=== PATIENT | female | born 1955 | race Caucasian/White ===

== ENCOUNTER 2016-12-24 18:55 | Inpatient (IN) | payer OTHER ==
[~2016-12-24] VITALS: Ht 162.6 cm; Wt 77.3 kg
[~2016-12-24 18:55] MED LIST: ASPIR 8181 MG PO; CIP500 PO; FLA250 PO; HYDROCHLOROTH12.5 M2 PO; LAC PO; LIPI10 PO; LISINOPRIL10 MG PO; METFORMIN ER500 M1; NEU300 PO
[2016-12-24] MEDS ORDERED: METFORMIN HCL500 MG PO (20:57)
[2016-12-24] MEDS ORDERED: NEU300 PO (20:58)
[2016-12-24] MEDS ORDERED: ASPIR 8181 MG PO (20:58)
[2016-12-24] MEDS ORDERED: LISINOPRIL10 MG PO (20:58)
[2016-12-24] MEDS ORDERED: LIPI10 PO (20:58)
[2016-12-24] MEDS ORDERED: HYDROCHLOROTH12.5 M2 PO (20:58)
[2016-12-24 21:30] LABS: CARBON DIOXIDE 30.6 mmol/L (21-32); CHLORIDE SERUM 96 mmol/L (98-107); CREATININE SERUM 0.8 mg/dL (0.6-1.0); GFR1 > 60 mL/min; GLUCOSE SERUM 101 mg/dL (74-106); POTASSIUM SERUM 3.9 mmol/L (3.5-5.1); SODIUM SERUM 134 mmol/L (136-145)
[2016-12-24 21:37] LABS: BASOPHIL % 0.4 % (0-2); PLATELET COUNT 374 x10^3mcL (130-400)
[2016-12-24 21:39] LABS: RED CELL DISTRIBUTION WIDTH 15.9 % (11.5-14.5)
[2016-12-24 21:41] LABS: ALKALINE PHOSPHATASE 106 U/L (46-116); ALT/SGPT 20 U/L (14-59); AST/SGOT 17 U/L (15-37); BILIRUBIN TOTAL 0.28 mg/dL (0.20-1.00); C REACTIVE PROTEIN 9.5 mg/dL (<=0.9)
[2016-12-24 21:42] LABS: ALBUMIN 3.2 g/dL (3.4-5.0); CHOLESTEROL/HDL RATIO 2.5
[2016-12-24 21:46] LABS: urine erythrocyte NEGATIVE (NEGATIVE)
[2016-12-24 22:00] LABS: CK-MB 0.9 ng/mL (0-3.6)
[2016-12-24 22:01] LABS: microscopic required? YES
[2016-12-24 22:02] LABS: T3 TOTAL 0.97 ng/mL
[2016-12-24 22:26] LABS: FREE T4 1.8 ng/dL (0.76-1.46); FREE THYROXINE INDEX 3.1 ug/dL (1.4-4.5); T4(THYROXINE) 9.8 ug/dL (4.7-13.3)
[2016-12-24 22:31] VITALS: BP 99/77
[2016-12-24 22:40] LABS: ERYTHROCYTE SED RATE 110 mm/hr (0-30)
[2016-12-25 06:20] VITALS: BP 97/64
[2016-12-25 13:59] VITALS: BP 116/53
[2016-12-25 18:16] VITALS: BP 147/67
[2016-12-25 20:55] VITALS: BP 124/69
[2016-12-26 05:45] VITALS: BP 139/72
[2016-12-26 06:19] LABS: BASOPHIL % 0.8 % (0-2); PLATELET COUNT 351 x10^3mcL (130-400)
[2016-12-26 06:48] LABS: RED CELL DISTRIBUTION WIDTH 15.9 % (11.5-14.5)
[2016-12-26 06:49] LABS: CARBON DIOXIDE 29.5 mmol/L (21-32); CHLORIDE SERUM 101 mmol/L (98-107); CREATININE SERUM 0.9 mg/dL (0.6-1.0); GFR1 > 60 mL/min; GLUCOSE SERUM 74 mg/dL (74-106); MAGNESIUM 2.1 mg/dL (1.8-2.4); PHOSPHOROUS 4.4 mg/dL (2.5-4.9); POTASSIUM SERUM 4.6 mmol/L (3.5-5.1); SODIUM SERUM 138 mmol/L (136-145)
[2016-12-26 09:21] VITALS: BP 118/70
[2016-12-26 16:25] VITALS: BP 125/64
[2016-12-26 21:17] VITALS: BP 151/81
[2016-12-27 06:07] VITALS: BP 132/69
[2016-12-27 08:58] VITALS: BP 121/41
[2016-12-27 09:15] LABS: BASOPHIL % 0.8 % (0-2); PLATELET COUNT 371 x10^3mcL (130-400)
[2016-12-27 09:17] LABS: RED CELL DISTRIBUTION WIDTH 15.5 % (11.5-14.5)
[2016-12-27 09:18] LABS: CALCIUM 8.7 mg/dL (8.5-10.1); CARBON DIOXIDE 30.6 mmol/L (21-32); PHOSPHOROUS 4.7 mg/dL (2.5-4.9); POTASSIUM SERUM 4.3 mmol/L (3.5-5.1)
[2016-12-27] MEDS ORDERED: CLINDAMYCIN HY150 M1 PO ×2 (12:52→13:51)
[2016-12-27] MEDS ORDERED: LAC PO (12:53)
[2016-12-27 14:15] VITALS: BP 121/41
== END 2016-12-27 14:25 | disposition home or self-care (01) | DRG 380 ==
LOC: ED 18:55 → DU 20:37 → MU 12-26 09:29
PROVIDERS: Family Medicine; Specialist; ADMIT Family Medicine
PROC: 0JBQ0ZZ Excision of Right Foot Subcutaneous Tissue and Fascia, Open Approach (ICD-10-PCS; principal; 2016-12-25)
DX: E11.621 Type 2 diabetes mellitus with foot ulcer (principal); L97.519 Non-pressure chronic ulcer of other part of right foot with unspecified severity; E11.52 Type 2 diabetes mellitus with diabetic peripheral angiopathy with gangrene; E44.0 Moderate protein-calorie malnutrition; E87.1 Hypo-osmolality and hyponatremia; Z79.84 Long term (current) use of oral hypoglycemic drugs; I10 Essential (primary) hypertension; M25.78 Osteophyte, vertebrae; L03.115 Cellulitis of right lower limb; E78.5 Hyperlipidemia, unspecified; D64.9 Anemia, unspecified; M25.70 Osteophyte, unspecified joint; E87.8 Other disorders of electrolyte and fluid balance, not elsewhere classified; Z89.429 Acquired absence of other toe(s), unspecified side; Z87.891 Personal history of nicotine dependence
CPT/HCPCS: 36600; 82962; 83880; 84439; 97530-GP; J2270; J2543; J3490; J7030; Q0092

== ENCOUNTER 2017-04-22 22:49 | Inpatient (IN) | payer OTHER ==
[~2017-04-22] VITALS: Ht 162.6 cm; Wt 81.6 kg
[~2017-04-22 22:49] MED LIST changes: +CLINDAMYCIN HY150 M1 PO; +METFORMIN HCL500 MG PO
[2017-04-23] VITALS (7 sets, daily range): BP systolic 112–129; BP diastolic 60–70
[2017-04-23 00:23] LABS: BASOPHIL % 0.3 % (0-2); PLATELET COUNT 306 x10^3mcL (130-400)
[2017-04-23 00:25] LABS: RED CELL DISTRIBUTION WIDTH 16.9 % (11.5-14.5)
[2017-04-23 00:40] LABS: CARBON DIOXIDE 30.8 mmol/L (21-32); CHLORIDE SERUM 97 mmol/L (98-107); CREATININE SERUM 0.9 mg/dL (0.6-1.0); GFR1 > 60 mL/min; GLUCOSE SERUM 124 mg/dL (74-106); POTASSIUM SERUM 4.7 mmol/L (3.5-5.1); SODIUM SERUM 134 mmol/L (136-145)
[2017-04-23 00:46] LABS: CK-MB 0.6 ng/mL (0-3.6)
[2017-04-23 00:56] LABS: ALKALINE PHOSPHATASE 138 U/L (46-116); ALT/SGPT 56 U/L (14-59); AST/SGOT 52 U/L (15-37); BILIRUBIN TOTAL 0.6 mg/dL (0.20-1.00)
[2017-04-23 01:01] LABS: ALBUMIN 2.9 g/dL (3.4-5.0); TOTAL PROTEIN, SERUM 8.6 g/dL (6.4-8.2)
[2017-04-23 03:59] LABS: CHOLESTEROL/HDL RATIO 2.8; MAGNESIUM 2.3 mg/dL (1.8-2.4)
[2017-04-23 04:09] LABS: T3 TOTAL 0.96 ng/mL
[2017-04-23 04:10] LABS: FREE T4 1.91 ng/dL (0.76-1.46); FREE THYROXINE INDEX 3.7 ug/dL (1.4-4.5); T4(THYROXINE) 10.8 ug/dL (4.7-13.3)
[2017-04-23 06:20] LABS: BASOPHIL % 0.2 % (0-2); PLATELET COUNT 287 x10^3mcL (130-400)
[2017-04-23 06:46] LABS: CALCIUM 8.4 mg/dL (8.5-10.1); CARBON DIOXIDE 26.3 mmol/L (21-32); CHLORIDE SERUM 102 mmol/L (98-107); CREATININE SERUM 0.9 mg/dL (0.6-1.0); GFR1 > 60 mL/min; GLUCOSE SERUM 88 mg/dL (74-106); POTASSIUM SERUM 4.1 mmol/L (3.5-5.1); SODIUM SERUM 139 mmol/L (136-145)
[2017-04-23 09:15] LABS: microscopic required? NO
[2017-04-23 09:41] LABS: urine erythrocyte NEGATIVE (NEGATIVE)
[2017-04-23 09:51] LABS: AMPHETAMINE QUAL UR POSITIVE (NEG <=1000)
[2017-04-23 15:09] LABS: IRON 15 ug/dL (50-170); TOTAL IRON BINDING CAPACITY 229 ug/dL (250-450)
[2017-04-24 05:10] VITALS: BP 121/61
[2017-04-24 06:34] LABS: BASOPHIL % 0.3 % (0-2); PLATELET COUNT 314 x10^3mcL (130-400)
[2017-04-24 06:37] LABS: CALCIUM 8.5 mg/dL (8.5-10.1); CARBON DIOXIDE 24.7 mmol/L (21-32); CHLORIDE SERUM 103 mmol/L (98-107); CREATININE SERUM 0.9 mg/dL (0.6-1.0); GFR1 > 60 mL/min; GLUCOSE SERUM 128 mg/dL (74-106); MAGNESIUM 2.3 mg/dL (1.8-2.4); PHOSPHOROUS 4.1 mg/dL (2.5-4.9); POTASSIUM SERUM 3.9 mmol/L (3.5-5.1); SODIUM SERUM 138 mmol/L (136-145)
[2017-04-24 06:40] LABS: RED CELL DISTRIBUTION WIDTH 17.2 % (11.5-14.5)
[2017-04-24 09:46] VITALS: BP 104/54
[2017-04-24 13:26] VITALS: BP 156/66
[2017-04-24 21:09] VITALS: BP 154/68
[2017-04-25 05:27] VITALS: BP 121/63
[2017-04-25 06:50] LABS: BASOPHIL % 0.7 % (0-2); PLATELET COUNT 377 x10^3mcL (130-400); RED CELL DISTRIBUTION WIDTH 17.3 % (11.5-14.5)
[2017-04-25 07:44] VITALS: BP 148/77
[2017-04-25 10:00] VITALS: BP 110/74
[2017-04-25] MEDS ORDERED: AUGMENTIN 875-1 EACH PO (12:09)
[2017-04-25] MEDS ORDERED: DAILY VALUE1 EACH PO (12:30)
[2017-04-25] MEDS ORDERED: NORCO1 TA2 PO (13:00)
[2017-04-25] MEDS ORDERED: NATURAL IRON65 MG PO (13:05)
[2017-04-25 13:32] VITALS: BP 148/77
== END 2017-04-25 15:05 | disposition home health service (06) | DRG 710 ==
LOC: ED 22:49 → DU 04-23 01:57
PROVIDERS: Emergency Medicine; Podiatrist Foot & Ankle Surgery; ADMIT Family Medicine
PROC: 0Y6N0Z9 Detachment at Left Foot, Partial 1st Ray, Open Approach (ICD-10-PCS; principal; 2017-04-23 09:00)
DX: A41.9 Sepsis, unspecified organism (principal); E43 Unspecified severe protein-calorie malnutrition; E11.42 Type 2 diabetes mellitus with diabetic polyneuropathy; E11.621 Type 2 diabetes mellitus with foot ulcer; E87.1 Hypo-osmolality and hyponatremia; L03.115 Cellulitis of right lower limb; F11.10 Opioid abuse, uncomplicated; D50.9 Iron deficiency anemia, unspecified; M86.671 Other chronic osteomyelitis, right ankle and foot; I87.2 Venous insufficiency (chronic) (peripheral); F15.10 Other stimulant abuse, uncomplicated; F14.10 Cocaine abuse, uncomplicated; F12.10 Cannabis abuse, uncomplicated; F17.210 Nicotine dependence, cigarettes, uncomplicated; Z79.82 Long term (current) use of aspirin; Z68.30 Body mass index [BMI] 30.0-30.9, adult; Z79.84 Long term (current) use of oral hypoglycemic drugs; E66.9 Obesity, unspecified
CPT/HCPCS: 82962; 83880; 84439; 94150; 97110-GP; 97116-GP; 97530-GP; J0780; J1200; J2250; J2270; J2405; J2543; J2704; J3010; J3490; J7030; Q0092

== ENCOUNTER 2017-08-24 18:16 | Emergency (ER) | payer OTHER ==
[~2017-08-24 18:16] MED LIST changes: +AUGMENTIN 875-1 EACH PO; +DAILY VALUE1 EACH PO; +NATURAL IRON65 MG PO; +NORCO1 TA2 PO
[2017-08-24 22:36] VITALS: BP 158/90
== END 2017-08-24 22:36 | disposition home or self-care (01) ==
LOC: ED 18:16
DX: S30.0XXA Contusion of lower back and pelvis, initial encounter (principal); E11.9 Type 2 diabetes mellitus without complications; I10 Essential (primary) hypertension; W18.30XA Fall on same level, unspecified, initial encounter; Y93.89 Activity, other specified; Y92.89 Other specified places as the place of occurrence of the external cause; Y99.8 Other external cause status
CPT/HCPCS: J1885

== ENCOUNTER 2018-09-01 18:42 | Emergency (ER) | payer OTHER ==
[~2018-09-01] VITALS: Ht 170.2 cm; Wt 87.5 kg
[2018-09-01 18:56] VITALS: Ht 170.2 cm; Wt 87.5 kg
[2018-09-01 21:31] VITALS: BP 168/94
== END 2018-09-01 21:31 | disposition home or self-care (01) ==
LOC: ED 18:42
DX: J18.9 Pneumonia, unspecified organism (principal); F17.210 Nicotine dependence, cigarettes, uncomplicated; I10 Essential (primary) hypertension; E11.9 Type 2 diabetes mellitus without complications; Z90.49 Acquired absence of other specified parts of digestive tract; Z98.890 Other specified postprocedural states
CPT/HCPCS: 99406; J0696; J1885; J7512; J7620; Q0092

== ENCOUNTER 2018-09-28 16:08 | Inpatient (IN) | payer OTHER ==
[~2018-09-28] VITALS: Ht 170.2 cm; Wt 86.2 kg
[2018-09-28 16:19] VITALS: Ht 170.2 cm; Wt 86.2 kg
[2018-09-28 17:59] LABS: BASOPHIL % 0.2 % (0-2); PLATELET COUNT 269 x10^3mcL (130-400)
[2018-09-28 18:04] LABS: RED CELL DISTRIBUTION WIDTH 15.4 % (11.5-14.5)
[2018-09-28 18:08] LABS: CALCIUM 8.3 mg/dL (8.5-10.1); CARBON DIOXIDE 29.9 mmol/L (21-32); CHLORIDE SERUM 103 mmol/L (98-107); CREATININE SERUM 0.9 mg/dL (0.6-1.0); GFR1 > 60 mL/min; GLUCOSE SERUM 205 mg/dL (74-106); POTASSIUM SERUM 4.1 mmol/L (3.5-5.1); SODIUM SERUM 141 mmol/L (136-145)
[2018-09-28 18:21] LABS: ALKALINE PHOSPHATASE 146 U/L (46-116); ALT/SGPT 25 U/L (14-59); AST/SGOT 18 U/L (15-37); BILIRUBIN TOTAL 0.32 mg/dL (0.20-1.00); FREE T4 1.62 ng/dL (0.76-1.46); LIPASE 189 IU/L (73-393); TOTAL PROTEIN, SERUM 7.9 g/dL (6.4-8.2)
[2018-09-28 18:25] LABS: ALBUMIN 3.2 g/dL (3.4-5.0)
[2018-09-28 18:58] LABS: microscopic required? NO
[2018-09-28 19:07] LABS: UA SPECIFIC GRAVITY 1.015 (1.005-1.035); urine erythrocyte NEGATIVE (NEGATIVE)
[2018-09-28 19:30] LABS: AMPHETAMINE QUAL UR POSITIVE (See below)
[2018-09-28 21:31] LABS: CHOLESTEROL/HDL RATIO 3.3; MAGNESIUM 2.3 mg/dL (1.8-2.4); PHOSPHOROUS 2.8 mg/dL (2.5-4.9)
[2018-09-28] MEDS ORDERED: METHADONE HCL10 MG (22:00)
[2018-09-28] MEDS ORDERED: LIPITOR10 MG (22:00)
[2018-09-28 23:22] VITALS: BP 172/89
[2018-09-29 00:04] VITALS: BP 172/89
[2018-09-29 05:06] VITALS: BP 141/84
[2018-09-29 06:26] LABS: BASOPHIL % 0.3 % (0-2); PLATELET COUNT 256 x10^3mcL (130-400)
[2018-09-29 06:40] LABS: CALCIUM 8.4 mg/dL (8.5-10.1); CHLORIDE SERUM 103 mmol/L (98-107); CREATININE SERUM 0.9 mg/dL (0.6-1.0); GFR1 > 60 mL/min; GLUCOSE SERUM 186 mg/dL (74-106); MAGNESIUM 2.5 mg/dL (1.8-2.4); PHOSPHOROUS 2.6 mg/dL (2.5-4.9); POTASSIUM SERUM 4.4 mmol/L (3.5-5.1); SODIUM SERUM 140 mmol/L (136-145)
[2018-09-29 07:13] LABS: RED CELL DISTRIBUTION WIDTH 15.6 % (11.5-14.5)
[2018-09-29 09:17] VITALS: BP 113/60
[2018-09-29 16:22] VITALS: BP 120/61
[2018-09-29 20:19] VITALS: BP 154/60
[2018-09-30 05:30] VITALS: BP 146/75
[2018-09-30 08:24] LABS: CALCIUM 8.5 mg/dL (8.5-10.1); CARBON DIOXIDE 26.3 mmol/L (21-32); CHLORIDE SERUM 106 mmol/L (98-107); CREATININE SERUM 0.8 mg/dL (0.6-1.0); GFR1 > 60 mL/min; GLUCOSE SERUM 145 mg/dL (74-106); MAGNESIUM 2.2 mg/dL (1.8-2.4); PHOSPHOROUS 2.9 mg/dL (2.5-4.9); POTASSIUM SERUM 4.6 mmol/L (3.5-5.1); SODIUM SERUM 142 mmol/L (136-145)
[2018-09-30 08:28] LABS: PLATELET COUNT 279 x10^3mcL (130-400); RED CELL DISTRIBUTION WIDTH 15.6 % (11.5-14.5)
[2018-09-30 09:42] VITALS: BP 136/73
[2018-09-30] MEDS ORDERED: LEVAQUIN750 MG PO (12:27)
[2018-09-30 13:16] VITALS: BP 136/73
[2018-09-30 16:06] VITALS: BP 156/77
== END 2018-09-30 18:15 | disposition home or self-care (01) | DRG 720 ==
LOC: ED 16:08 → MU 20:25
PROVIDERS: Emergency Medicine; ADMIT Internal Medicine
DX: A41.9 Sepsis, unspecified organism (principal); J96.01 Acute respiratory failure with hypoxia; J69.0 Pneumonitis due to inhalation of food and vomit; E11.65 Type 2 diabetes mellitus with hyperglycemia; T58.91XA Toxic effect of carbon monoxide from unspecified source, accidental (unintentional), initial encounter; I16.0 Hypertensive urgency; F15.10 Other stimulant abuse, uncomplicated; E78.5 Hyperlipidemia, unspecified; F17.210 Nicotine dependence, cigarettes, uncomplicated; I10 Essential (primary) hypertension; E78.00 Pure hypercholesterolemia, unspecified; E11.40 Type 2 diabetes mellitus with diabetic neuropathy, unspecified; J44.1 Chronic obstructive pulmonary disease with (acute) exacerbation; Z79.84 Long term (current) use of oral hypoglycemic drugs; Z90.49 Acquired absence of other specified parts of digestive tract; Z89.421 Acquired absence of other right toe(s); Y92.89 Other specified places as the place of occurrence of the external cause
CPT/HCPCS: 82962; 83880; 84439; 87804; 94150; J0456; J0696; J2543; J3370; J7030; J7050; J7620; J7626

== ENCOUNTER 2018-10-23 19:34 | Inpatient (IN) | payer OTHER ==
[~2018-10-23] VITALS: Ht 170.2 cm; Wt 84.1 kg
[~2018-10-23 19:34] MED LIST changes: +LEVAQUIN750 MG PO; +LIPITOR10 MG; +METHADONE HCL10 MG
--- NOTE | 2018-10-23 20:06 | NUR ---
PT BIB FOR C/O SOB/ COUGH SINCE . PT STS THAT SHE WAS ADMITT[place] [facility] [place] FOR PNA AND WAS DISCHARGED WITH RX FOR ANTIBIOTICS THAT LASTED 5 DAYS. PER PT SHE TOOK ALL THE MEDICATION AND STS " IT DIDNT HELP, MY COUGH IS WORSE, I CANT CATCH A BREAK". CONGESTION IS NOTED NANY UPON AUSCULTATION. PT REPORTS A DRY COUGH WITH NO PHLEGM. PT REPORTS HISTORY OF SMOKING BUT HAS QUIT. PT STATES THAT THAT SHE HAS SOB WHEN SHE COUGHS. PT DENIES ANY DIZZINESS OR LOC. PT DENIES ANY FEVER. PT IS A/O X4. PT RESPS ARE EVEN BUT LABORED. PT WAS WHEELED BY WHEELCHAIR FROM ED LOBBY TO ED BED 2B. PT PLACES ON PULSE OXIMETRY. NO ACUTE DISTRESS NOTED
--- NOTE | 2018-10-23 20:10 | NUR ---
DR CORDOVA AT BEDSIDE FOR MSE
--- NOTE | 2018-10-23 20:47 | NUR ---
TWO UNSUCCESSFUL IV ATTEMPTS. APPLIED WARM COMPRESS AND WARM BLANKETS TO PT UPPER EXTREMITIES.
--- NOTE | 2018-10-23 20:52 | NUR ---
LAB AT BEDSIDE TO COLLECT BLOOD SAMPLES
--- NOTE | 2018-10-23 20:57 | NUR ---
PORTABLE XRAY AT BEDSIDE
--- NOTE | 2018-10-23 21:05 | NUR ---
PT IS ABLE TO AMBULATE WITH STEADY GAIT TO RESTROOM TO GIVE URINE SPECIMEN
[2018-10-23 21:13] LABS: PLATELET COUNT 280 x10^3mcL (130-400)
[2018-10-23 21:14] LABS: BASOPHIL % 0 % (0-2); RED CELL DISTRIBUTION WIDTH 15.7 % (11.5-14.5)
--- NOTE | 2018-10-23 21:15 | NUR ---
RT AT BEDSIDE TO ADMINISTER BREATHING TREATMENT
[2018-10-23 21:31] LABS: CALCIUM 8.7 mg/dL (8.5-10.1); POTASSIUM SERUM 4.8 mmol/L (3.5-5.1)
[2018-10-23 21:36] LABS: BILIRUBIN TOTAL 0.38 mg/dL (0.20-1.00); TOTAL PROTEIN, SERUM 7.3 g/dL (6.4-8.2)
[2018-10-23 21:36] LABS: microscopic required? NO
[2018-10-23 21:37] LABS: ALBUMIN 3.2 g/dL (3.4-5.0)
[2018-10-23 21:42] LABS: UA SPECIFIC GRAVITY <=1.005 (1.005-1.035); urine erythrocyte NEGATIVE (NEGATIVE)
[2018-10-23 21:56] LABS: CHOLESTEROL/HDL RATIO 4.2; MAGNESIUM 2.2 mg/dL (1.8-2.4); PHOSPHOROUS 2.7 mg/dL (2.5-4.9)
--- NOTE | 2018-10-23 22:08 | NUR ---
SPOKE WITH PHARMACIST SALMA REGARDING VANCOMYCIN RECONSTITUTION. PER SALMA, RECONSTITUTE VANCOMYCIN DIRECTED THEN DILUTE IN 200ML OF D5W OR NS, NOT 100ML D5W IN EMAR.
--- NOTE | 2018-10-23 22:30 | NUR ---
CENTRAL LINE PLACED BY DR CORDOVA IN PTS LEFT JUGULAR. PT TOLERATED PROCEDURE WELL. MANY ATTEMPTS WERE MADE BY MYSELF AND OTHER RNS TO OBTAIN IV ACESS
--- NOTE | 2018-10-23 22:33 | NUR ---
PLACEMENT CONFIRMED VIA XRAY. OK TO USE BY PER DR CORDOVA
--- NOTE | 2018-10-23 23:00 | NUR ---
PT LAYING IN ED GURNEY IN POSITION OF COMFORT. PT DENIES ANY PAIN. PT IS A/O X4. PT RESPS ARE E/U
--- NOTE | 2018-10-23 23:45 | NUR ---
RECEIVED PT FROM ED VIA [facility], CAME IN DUE TO COUGH SINCE AUGUST. AAOX4. DENIES HEADACHE/DIZZINESS. ABLE TO FOLLOW COMMANDS. NO SOB NOTED, LUNG SOUNDS CTA. O2 SAT=95%, RA. W/ NON-PRODUCTIVE COUGH. DENIES CHEST PAIN/PRESSURE. DENIES ABDOMINAL PAIN/NAUSEA/VOMITING. ABDOMEN IS DISTENDED BUT SOFT. VOIDS. W/ RIJ TRIPLE LUMEN CENTRAL LINE, W/ GOOD BLOOD RETURN. RECEIVED PT FROM ED W/ VANCOMYCIN ONGOING. SIDE RAILS UPX2. CALL LIGHT ON REACH. ENDORSED TO PRIMARY NURSE RAMIN AT BEDSIDE FOR CONTINUITY OF CARE
--- NOTE | 2018-10-23 23:45 | NUR ---
PT WHEELED OUT OF ED VIA [facility]ION HENRY. PT IS A/O X4. PT RESPS ARE E/U. NO INCIDENT NOTED
[2018-10-24] VITALS (8 sets, daily range): BP systolic 135–165; BP diastolic 66–89; Ht 170.2 cm; Wt 84.1 kg
--- NOTE | 2018-10-24 | NUR ---
RECEIVED PT FROM ED VIA [employer] ([facility]). PT IS AAOX4 DENIES HEADACHE OR DIZZINESS. TELE 29 SR HR 85, DENIES CHEST PAIN. LUNG SOUNDS CTA ON RA. PT HAS A COUGH. LAST BM 10/23/18. PT AMBULATORY. CENTRAL LINE LIJ. CALL BUTTON WITHIN REACH. WILL CONTINUE TO MONITOR.
--- NOTE | 2018-10-24 03:43 | NUR ---
PT IS ASLEEP AT THIS TIME, NO SIGNS OF DISTRESS NOTED. IV INFUSING WELL. WILL CONTINUE TO MONITOR.
--- NOTE | 2018-10-24 06:25 | NUR ---
UNABLE TO GET IV ACCESS FOR CT ANGIO THIS AM, DR HENRY MADE AWARE.
--- NOTE | 2018-10-24 06:41 | NUR ---
PATIENT SLEPT ON AND OFF THROUGHOUT THE NIGHT WITH NO DISTRESS. PT HAS A CENTRAL LINE TO LIJ PATENT INFUSING WELL. CT ANGIO SCHEDULED THIS AM UNABLE TO GET IV ACCESS, DR HENRY MADE AWARE OF MULTIPLE ATTEMPTS. WILL CONTINUE TO MONITOR AND ENDORSE CARE TO DAY SHIFT RN.
[2018-10-24 06:48] LABS: CARBON DIOXIDE 27.3 mmol/L (21-32); CHLORIDE SERUM 100 mmol/L (98-107); CREATININE SERUM 0.9 mg/dL (0.6-1.0); GFR1 > 60 mL/min; GLUCOSE SERUM 269 mg/dL (74-106); MAGNESIUM 2.3 mg/dL (1.8-2.4); PHOSPHOROUS 2.9 mg/dL (2.5-4.9); POTASSIUM SERUM 4.1 mmol/L (3.5-5.1); SODIUM SERUM 135 mmol/L (136-145)
[2018-10-24 07:30] LABS: BASOPHIL % 0.3 % (0-2); PLATELET COUNT 201 x10^3mcL (130-400)
[2018-10-24 07:31] LABS: RED CELL DISTRIBUTION WIDTH 16.3 % (11.5-14.5)
--- NOTE | 2018-10-24 07:34 | NUR ---
PT IS ASLEEP, IV INFUSING WELL. NO SIGNS OF DISTRESS NOTED. ENDORSED CARE TO DAY SHIFT RN, ALL QUESTIONS ADDRESSED.
--- NOTE | 2018-10-24 07:40 | NUR ---
PT AAOX4, FOLLOWS COMMANDS, VERBALLY RESPONSIVE. DENIES H/A OR DIZZINESS. RESP EVEN, SHALLOW AND UNLABORED. LUNG SOUNDS DIMINISHED BILATERALLY. PT ON R/A. PT NOTED WITH DRY UNPRODUCTIVE COUGH. NO SOB NOTED. TELE [address] READING NSR. ABDOMEN SOFT, ROUND, NONTENDER. BOWELS ACTIVE. SKIN CDI. IVF RUNNING TO LIJ CENTRAL LINE. CENTRAL LINE PATENT. ALL 3 PORTS FLUSHED WITH GOOD BLOOD RETURN. PT DENIES PAIN OR DISCOMFORT AT THIS TIME. CALL LIGHT WITHIN REACH. BED IN LOW POSITION. BED ALARM ON.
--- NOTE | 2018-10-24 10:39 | NUR ---
PT OFF UNIT FOR CT SCAN. CENTRAL LINE NS LOCKED.
--- NOTE | 2018-10-24 11:00 | NUR ---
REPORTED TO DR. BOYLE PT'S METFORMIN WILL NEED TO BE HELD FOR 48 HOURS. NO NEW ORDER AT THIS TIME.
--- NOTE | 2018-10-24 11:14 | NUR ---
PT BACK FROM CT SCAN. CENTRAL LINE FLUIDS STARTED. PT DENIES PAIN OR DISCOMFORT AT THIS TIME.
--- NOTE | 2018-10-24 11:50 | NUR ---
RECEIVED REPORT THAT PT'S CT SHOWS LARGE RIGHT HILAR MASS. PAGED DR. BOYLE TO REPORT, AWAITING CALL BACK.
--- NOTE | 2018-10-24 12:15 | NUR ---
REPORTED TO DR. BOYLE PT'S CT SCAN SHOWED LARGE MASS IN R HILAR. NNOS AT THIS TIME.
--- NOTE | 2018-10-24 12:47 | NUR ---
DUE MEDS GIVEN AND TOLERATED WELL. RESP EVEN AND UNLABORED. PT NOTED WITH CHRONIC DRY, NONPRODUCTIVE COUGH. PT DENIES PAIN AT THIS TIME. CALL LIGHT WITHIN REACH. BED ALARM ON.
--- NOTE | 2018-10-24 16:02 | NUR ---
DUE MEDS GIVEN. RESP EVEN AND UNLABORED. PT NOTED WITH DRY, NONPRODUCTIVE COUGH. ON R/A. DENIES PAIN OR DISCOMFORT. CALL LIGHT WITHIN REACH. BED ALARM.
--- NOTE | 2018-10-24 18:47 | NUR ---
PT IS AAOX4. RESP EVEN AND UNLABORED. PT NOTED WITH DRY, UNPRODUCTIVE COUGH. ON R/A. TELE [address] READING NSR. IV CENTRAL LINE TO LIJ PATENT WITH NO S/S OF INFECTION/INFILTRATION NOTED. NO DISTRESS NOTED. PT DENIES PAIN AND DISCOMFORT. BED IN LOW POSITION. CALL LIGHT WITHIN REACH. WILL ENDORSE ALL CARE TO NOC RN.
--- NOTE | 2018-10-24 19:42 | NUR ---
RECEIVED PT FROM DAY SHIFT RN. PT IS ASLEEP AT THIS TIME. NO SIGNS OF DISTRESS NOTED. TELE 29 SR. LUNG SOUNDS CTA ON RA. ABD DISTENTION NOTED. LLE SCAB. CENTRAL LINE LIJ, INFUSING WELL. WILL CONTINUE TO MONITOR.
--- NOTE | 2018-10-24 23:13 | NUR ---
PT IS AWAKE RESTING IN BED, DENIES ANY PAIN NO SIGNS OF DISTRESS NOTED. WILL CONTINUE TO MONITOR.
--- NOTE | 2018-10-25 02:21 | NUR ---
ROUNDS MADE. PT IS ASLEEP AT THIS TIME. NO SIGNS OF DISTRESS NOTED. IV INFUSING WELL. WILL CONTINUE TO MONITOR.
[2018-10-25 05:38] VITALS: BP 127/64
[2018-10-25 06:25] LABS: BASOPHIL % 0.3 % (0-2); PLATELET COUNT 232 x10^3mcL (130-400)
[2018-10-25 06:49] LABS: CALCIUM 7.8 mg/dL (8.5-10.1); CARBON DIOXIDE 30.8 mmol/L (21-32); CHLORIDE SERUM 103 mmol/L (98-107); CREATININE SERUM 0.9 mg/dL (0.6-1.0); GFR1 > 60 mL/min; GLUCOSE SERUM 209 mg/dL (74-106); MAGNESIUM 2.2 mg/dL (1.8-2.4); SODIUM SERUM 137 mmol/L (136-145)
--- NOTE | 2018-10-25 06:56 | NUR ---
PT SLEPT MOST OF THE NIGHT WITH NO SIGNS OF DISTRESS NOTED. CENTRAL LINE INFUSING WELL. MEDICATED PER EMAR. CALL BUTTON WITHIN REACH. WILL CONTINUE TO MONITOR AND ENDORSE CARE TO DAY SHIFT RN.
[2018-10-25 07:06] LABS: RED CELL DISTRIBUTION WIDTH 16.3 % (11.5-14.5)
--- NOTE | 2018-10-25 07:32 | NUR ---
PT IS ASLEEP AT THIS TIME, NO SIGNS OF DISTRESS NOTED. ENDORSED CARE TO DAY SHIFT RN, ALL QUESTIONS ADDRESSED.
--- NOTE | 2018-10-25 08:00 | NUR ---
RECEIVED PATIENT ALERT/ORIENTED X4. DENIED PAIN. TELE#29; SR; HR 78; DENIED CHEST PAIN. NO SOB ON RA. O2 SAT 95%. BREATHING SOUND DIMINISEHD RLL. NON-PRODUCTIVE COUGHING. PATIENT REPORTED NO SPUTUM. HAVING CCHO DIET BREAKFAST. NO N/V. AMBULATORY. CENTRAL LINE TO LIJ; ALL PORTS PATENT W/ NS FLUSH. CALL LIGHT IN REACH.
[2018-10-25 09:16] VITALS: BP 132/70
--- NOTE | 2018-10-25 12:15 | NUR ---
DR. DAVID CAME TO SEE PATEINT. ORDER OF BRONCHOSCOPY THIS PM. PUT PATIENT NPO NOW.
[2018-10-25 13:00] VITALS: BP 148/78
--- NOTE | 2018-10-25 14:50 | NUR ---
RECEIVED TELEPHONE CALL FROM DR. DAVID. BRONCHOSCOPY CHANGED TO TOMORROW 07.
--- NOTE | 2018-10-25 15:08 | NUR ---
PT WAS SEEN FOR DYSPHAGIA. PT WAS ABLE TO SAFELY SWALLOW MS DIET WITH THIN LIQUID WITHOUT S/S OF ASPIRATION. PT HAD MILD MASTICATION SKILLS DIFFICULTY WITH REGULAR DIET. RECOMMENDATION MS DIET WITH THIN LIQUID SMALL BITES. UPRIGHT POSITION.
[2018-10-25 16:35] VITALS: BP 138/93
--- NOTE | 2018-10-25 17:45 | NUR ---
CENTRAL LINE CARE GIVEN. DRSG CHANGED. NO REDNESS/DRAINAGE SEEN EXPECPT SMALL AMT OF BLOODY OOZING.
--- NOTE | 2018-10-25 20:09 | NUR ---
RECEIVED PATIENT IN BED AWAKE, ALERT AND ORIENTED WITH NO SIGN OF ACUTE DISTRESS, BREATHING EASYA ND NONLABOR WITH DIMINISHED BS TO RLL. CENTRAL LINE CATH TO [facility] CDI WITH NS AT 125MG/HR INFUSING WELL.INSTRUCTION ON NPO POST MIDNIGHT GIVEN AND PATIENT VERBALIZED UNDESTANDING. WILL CONTINUE TO MONITOR. CALL LIGHT WITHIN REACH.
[2018-10-25 20:57] VITALS: BP 132/92
--- NOTE | 2018-10-25 21:59 | NUR ---
PATIENT FOUND SMOKING IN THE BATHROOM, SECURITY CALLED, RESIDENT MADE AWARE, NICOTINE PATCH APPLIED TO RT UPPER CHEST.
--- NOTE | 2018-10-25 23:53 | NUR ---
STILL AWAKE WATCHING TELEVISION, DENIES PAIN AND DISCOMFORT. WILL CONTINUE TO MONITOR.
--- NOTE | 2018-10-26 02:00 | NUR ---
APPEARS SLEEPING THIS TIME, BREATHING EASYA ND NONLABOR. WILL CONTINUE TO MONITOR.
--- NOTE | 2018-10-26 05:16 | NUR ---
SLEPT FAIRLY, KEPT ON NPO POST MIDNIGHT. ALL NEEDS ATTENDED.
[2018-10-26 06:11] LABS: BASOPHIL % 0.3 % (0-2); PLATELET COUNT 244 x10^3mcL (130-400)
[2018-10-26 06:23] LABS: RED CELL DISTRIBUTION WIDTH 16.1 % (11.5-14.5)
[2018-10-26 06:44] LABS: CALCIUM 8.6 mg/dL (8.5-10.1); CARBON DIOXIDE 30.1 mmol/L (21-32); CHLORIDE SERUM 103 mmol/L (98-107); CREATININE SERUM 0.9 mg/dL (0.6-1.0); GFR1 > 60 mL/min; GLUCOSE SERUM 210 mg/dL (74-106); MAGNESIUM 2.1 mg/dL (1.8-2.4); PHOSPHOROUS 3.3 mg/dL (2.5-4.9); POTASSIUM SERUM 3.7 mmol/L (3.5-5.1); SODIUM SERUM 140 mmol/L (136-145)
--- NOTE | 2018-10-26 07:21 | NUR ---
WENT TO OR FOR BRONCHOSCOPY.
--- NOTE | 2018-10-26 08:55 | NUR ---
RECEIVED PATIENT FROM OR RECOVERY ROOM. ALERT/ORIENTED X4. SPEECH CLEAR. V/S = [phone]/74; O2 SAT 91% ON RA, IMPROVED TO 95% ON 2L VIA N/C. NO SOB. LUNG SOUDN CLEAER L SIDE; DIMINISHED R SIDE. NON-PRODUCTIVE COUGHING. NO SPOTUM PER PATIENT'S REPORT. CENTRAL LINE TO L JAW AREA W/ DRSG INTACT. SMALL BLEEDING NORED. PATIENT AMBULATORY. BRP WITHOUT ASSIST. DENIED PAIN NOW. CALL LIGHT IN REACH.
[2018-10-26 13:35] VITALS: BP 144/75
--- NOTE | 2018-10-26 17:37 | NUR ---
REPORTED DR. SANABRIA - PATIENT C/O NON PRODUCTIVE COUGHING. NEW ORDER OF ROBITUSSIN W/ CODEINE PO GIVEN PER ORDER. CONTINUE MONITOR.
[2018-10-26 18:14] VITALS: BP 151/86
--- NOTE | 2018-10-26 19:00 | NUR ---
NON PRODUCTIVE COUGHING NO SIGNIFICANT CHANGE. TOLERATED CCHO DIET. BRP. VOID X5; BM X2. ENDORSED CARE TO NOC NURSE.
[2018-10-26 20:56] VITALS: BP 151/86
--- NOTE | 2018-10-26 20:56 | NUR ---
HEEL BOOT GIVEN TO PATIENT AND SECURE DRESSING TO LEFT FOOT. PER RESOURCE NURSE HANNAH, PODIATRY SAW PATIENT TODAY ALREADY AND DID DRESSING CHANGE. PAIN MEDICATION PROVIDED TO PATIENT WELL.
--- NOTE | 2018-10-26 21:11 | NUR ---
DR. NELSON AWARE THAT PATIENT IS COMPLAINING OF CONTINUED DRY NON-PRODUCTIVE COUGH. NEW ORDERS RECEIVED.
--- NOTE | 2018-10-26 21:48 | NUR ---
SCHEDULED MEDICATIONS ADMINISTERED. NO SWALLOWING DIFFICULTY. TESSALON PEARLS PROVIDED.
--- NOTE | 2018-10-26 23:32 | NUR ---
CENTRAL LINE TO LEFT SIDE INTRAJUGULAR WITH 3 PORTS ATTEMPTED TO FLUSH, WITH ONLY MEDIAN LINE FLUSHING WELL.
--- NOTE | 2018-10-26 23:46 | NUR ---
DR. NELSON AWARE THAT THE OTHER TWO PORTS OF THE PATIENT'S CENTRAL LINE IS NOT FLUSHING.
--- NOTE | 2018-10-27 01:30 | NUR ---
PATIENT STILL COMPLAINING OF THROAT PAIN AND DRY COUGH. ADMINISTERED ROBITUSSIN (SEE EMAR). PATIENT ALSO AMBULATED TO BATHROOM INDEPENDENTLY TO URINATE. NO S/SX OF RESPIRATORY DISTRESS.
[2018-10-27 05:22] VITALS: BP 136/92
[2018-10-27 06:16] LABS: BASOPHIL % 0.3 % (0-2); PLATELET COUNT 245 x10^3mcL (130-400)
[2018-10-27 06:35] LABS: CALCIUM 7.9 mg/dL (8.5-10.1); CARBON DIOXIDE 32.3 mmol/L (21-32); CHLORIDE SERUM 102 mmol/L (98-107); CREATININE SERUM 0.9 mg/dL (0.6-1.0); GFR1 > 60 mL/min; GLUCOSE SERUM 212 mg/dL (74-106); MAGNESIUM 2.1 mg/dL (1.8-2.4); PHOSPHOROUS 3.1 mg/dL (2.5-4.9); POTASSIUM SERUM 4.1 mmol/L (3.5-5.1); SODIUM SERUM 140 mmol/L (136-145)
[2018-10-27 07:25] LABS: RED CELL DISTRIBUTION WIDTH 16.1 % (11.5-14.5)
--- NOTE | 2018-10-27 07:40 | NUR ---
PT IS AAOX4. RESP EVEN, SHALLOW AND UNLABORED. PT HAS CHRONIC DRY COUGH. ON R/A. TELEMONITOR [address] READING NSR[address] SKIN CDI. NO EDEMA NOTED. PERIPHERAL PULSES PALPABLE. ABDOMEN SOFT, ROUND, NONTENDER. BOWEL SOUNDS ACTIVE. IVF RUNNING TO LIJ, MEDIAL PORT PATENT, DISTAL AND PROXIMAL PORTS OCCLUDED. SITE WNL. PT DENIES PAIN AT THIS TIME. CALL LIGHT WITHIN REACH. BED IN LOWEST POSITION.
--- NOTE | 2018-10-27 09:30 | NUR ---
DR. OLIVAS AND MEDICAL TEAM VISITED WITH PT AND DISCUSSED POC. PT TO D/C TODAY. PT AGREES WITH POC.
[2018-10-27 09:31] VITALS: BP 158/78
--- NOTE | 2018-10-27 09:50 | NUR ---
DUE MEDS GIVEN AND TOLERATED WELL. PT DENIES PAIN OR DISCOMFORT AT THIS TIME. RESP EVEN AND UNLABORED. NO RESPITORY DISTRESS NOTED. CALL LIGHT WITHIN REACH.
[2018-10-27] MEDS ORDERED: LEVEMIR100 U/M1 SC (11:53)
[2018-10-27] MEDS ORDERED: PROAIR HFA8.5 GM IH (12:00)
[2018-10-27] MEDS ORDERED: HUMULIN R100 U/1 M1 IJ (12:05)
--- NOTE | 2018-10-27 12:53 | NUR ---
DUE MEDS GIVEN AND TOLERATED WELL. PT DENIES PAIN OR DISCOMFORT. NO DISTRESS NOTED. CALL LIGHT WITHIN REACH.
[2018-10-27 13:18] VITALS: BP 147/84
[2018-10-27 13:25] VITALS: BP 147/84
--- NOTE | 2018-10-27 15:25 | NUR ---
PT D/C TO STAY WITH FRIEND. DISCHARGE INSTRUCTIONS REVIEWED. ALL FORMS SIGNED. RX GIVEN TO PT. PICC LINE TO LIJ REMOVED WITH CATH INTACT, PRESSURE HELD FOR 10 MINUTES THEN COVERED WITH CDI DRESSING. NO BLEEDING AT SITE, INCISIONS COMPLETELY REMOVED. VS; 97.4, 81, 18, 147/84, 96% ON R/A. PT DENIES PAIN AND DISCOMFORT AT THIS TIME. ALL BELONGINGS TAKEN HOME WITH PT.
== END 2018-10-27 15:20 | disposition home or self-care (01) | DRG 720 ==
LOC: ED 19:34 → DU 21:26 → MU 21:26 → DU 23:56
PROVIDERS: Emergency Medicine; Family Medicine; Internal Medicine; ADMIT Internal Medicine
PROC: 02HV33Z Insertion of Infusion Device into Superior Vena Cava, Percutaneous Approach (ICD-10-PCS; 2018-10-23)
PROC: 0BDD8ZX Extraction of Right Middle Lung Lobe, Via Natural or Artificial Opening Endoscopic, Diagnostic (ICD-10-PCS; 2018-10-26)
PROC: 0BDF8ZX Extraction of Right Lower Lung Lobe, Via Natural or Artificial Opening Endoscopic, Diagnostic (ICD-10-PCS; principal; 2018-10-26 07:30)
DX: A41.9 Sepsis, unspecified organism (principal); J96.01 Acute respiratory failure with hypoxia; J18.9 Pneumonia, unspecified organism; E44.0 Moderate protein-calorie malnutrition; E11.65 Type 2 diabetes mellitus with hyperglycemia; I10 Essential (primary) hypertension; F17.210 Nicotine dependence, cigarettes, uncomplicated; E78.5 Hyperlipidemia, unspecified; R65.20 Severe sepsis without septic shock; J44.1 Chronic obstructive pulmonary disease with (acute) exacerbation; J44.0 Chronic obstructive pulmonary disease with (acute) lower respiratory infection; R91.8 Other nonspecific abnormal finding of lung field; Z68.29 Body mass index [BMI] 29.0-29.9, adult; Z79.84 Long term (current) use of oral hypoglycemic drugs; Z87.01 Personal history of pneumonia (recurrent); Z90.49 Acquired absence of other specified parts of digestive tract; Z98.891 History of uterine scar from previous surgery; Z91.19 Patient's noncompliance with other medical treatment and regimen
CPT/HCPCS: 82962; 83880; 85378; 87804; 92526-GN; 92610; 94150; 99406; J2250; J2543; J3010; J3370; J7030; J7620; Q0092; Q9967

== ENCOUNTER 2018-11-16 17:31 | Inpatient (IN) | payer OTHER ==
[~2018-11-16] VITALS: Ht 170.2 cm; Wt 81.9 kg
[2018-11-16 17:31] VITALS: Ht 170.2 cm; Wt 81.9 kg
[~2018-11-16 17:31] MED LIST changes: +HUMULIN R100 U/1 M1 IJ; +LEVEMIR100 U/M1 SC; +PROAIR HFA8.5 GM IH
[2018-11-16 19:14] LABS: BASOPHIL % 0.1 % (0-2); PLATELET COUNT 377 x10^3mcL (130-400)
[2018-11-16 19:15] LABS: RED CELL DISTRIBUTION WIDTH 17.6 % (11.5-14.5)
[2018-11-16 19:19] LABS: CALCIUM 8.2 mg/dL (8.5-10.1); CARBON DIOXIDE 29.7 mmol/L (21-32); CHLORIDE SERUM 101 mmol/L (98-107); CREATININE SERUM 0.9 mg/dL (0.6-1.0); GFR1 > 60 mL/min; GLUCOSE SERUM 239 mg/dL (74-106); POTASSIUM SERUM 3.8 mmol/L (3.5-5.1); SODIUM SERUM 138 mmol/L (136-145)
[2018-11-16 19:24] LABS: ALBUMIN 2.7 g/dL (3.4-5.0); ALKALINE PHOSPHATASE 171 U/L (46-116); ALT/SGPT 27 U/L (14-59); AST/SGOT 18 U/L (15-37); BILIRUBIN TOTAL 0.28 mg/dL (0.20-1.00); TOTAL PROTEIN, SERUM 7.1 g/dL (6.4-8.2)
[2018-11-16 20:31] LABS: CHOLESTEROL/HDL RATIO 3.7; MAGNESIUM 2.1 mg/dL (1.8-2.4); PHOSPHOROUS 2.4 mg/dL (2.5-4.9)
[2018-11-16 21:48] VITALS: BP 149/73
[2018-11-16 23:29] LABS: microscopic required? NO
[2018-11-16 23:49] LABS: AMPHETAMINE QUAL UR POSITIVE (See below); UA SPECIFIC GRAVITY 1.015 (1.005-1.035); urine erythrocyte NEGATIVE (NEGATIVE)
[2018-11-17 01:11] VITALS: BP 149/73
[2018-11-17 05:53] VITALS: BP 131/64
[2018-11-17 06:31] LABS: TOTAL IRON BINDING CAPACITY 276 ug/dL (250-450)
[2018-11-17 06:32] LABS: CALCIUM 8.3 mg/dL (8.5-10.1); CARBON DIOXIDE 29.6 mmol/L (21-32); MAGNESIUM 2.4 mg/dL (1.8-2.4); PHOSPHOROUS 2.4 mg/dL (2.5-4.9); POTASSIUM SERUM 4.1 mmol/L (3.5-5.1)
[2018-11-17 07:00] LABS: IRON 21 ug/dL (50-170)
[2018-11-17 07:14] LABS: BASOPHIL % 0 % (0-2); PLATELET COUNT 331 x10^3mcL (130-400); RED CELL DISTRIBUTION WIDTH 17.3 % (11.5-14.5)
[2018-11-17 08:30] VITALS: BP 128/69
== END 2018-11-17 11:17 | disposition left against medical advice (07) | DRG 136 ==
LOC: ED 17:31 → DU 19:57
PROVIDERS: Emergency Medicine; ADMIT Internal Medicine
DX: C34.90 Malignant neoplasm of unspecified part of unspecified bronchus or lung (principal); E43 Unspecified severe protein-calorie malnutrition; J18.1 Lobar pneumonia, unspecified organism; E11.65 Type 2 diabetes mellitus with hyperglycemia; E83.39 Other disorders of phosphorus metabolism; F15.10 Other stimulant abuse, uncomplicated; F17.210 Nicotine dependence, cigarettes, uncomplicated; E78.5 Hyperlipidemia, unspecified; Z53.21 Procedure and treatment not carried out due to patient leaving prior to being seen by health care provider; E78.00 Pure hypercholesterolemia, unspecified; I10 Essential (primary) hypertension; Z68.28 Body mass index [BMI] 28.0-28.9, adult; Z79.84 Long term (current) use of oral hypoglycemic drugs; Z90.49 Acquired absence of other specified parts of digestive tract; Z98.891 History of uterine scar from previous surgery
CPT/HCPCS: 82962; 83880; 87804; J1815; J2543; J2930; J3370; J7620